=== PATIENT | female | born 1990 | race Caucasian/White ===

== ENCOUNTER 2021-06-04 10:05 | Inpatient (IN) | payer OTHER ==
[~2021-06-04] VITALS: Ht 170.2 cm; Wt 95.7 kg
--- NOTE | 2021-06-17 08:33 | NUR ---
06/17/21 0833 JONESBRAULIO 0821-PATIENT TO BACK TO ROOM 103. PATIENT AWAKE ON RA REQUESTING PILLOW BEHIND HEAD. DENIES PAIN AND NAUSEA. IN SR. GREG RICARDO ORDERD TO GIVE 1L OF LR WITH 20 PITOCIN. IV FLUIDS INFUSING. MOM FEEDING BABY.
--- NOTE | 2021-06-18 10:43 | PR ---
[facility] [address] [place], [place] [address] Signed PP Progress Notes Datetime Report Generated by CPN: 06/18/2021 10:43 SUBJECTIVE: [id number] Pain: Within Normal Limits Nausea/Vomiting: Denies Flatus: Yes Bowel Movement: No Vital Signs: [id number] Vital Signs: Reviewed; Within Normal Limits Notable Details: Hgb 10.8 EXAM: Ongoing Cardiovascular: Normal Respiratory: Normal Abdomen/Uterus: Normal Lochia: Normal Vulva/Perineum: Normal CVA Tenderness: Normal Extremities: Normal Incision: Normal Progress: Normal Exam Comments: Fundus firm U-2 nontender. Incision healing well w/ adam in place IMPRESSION/PLAN/PROCEDURES: [id number] Impression: Normal Progression Plan: Continue Present Management Progress Notes: Pt seen and examined. Doing well. Ambulating, voiding, and tolerating full diet. Pain and lochia minimal. w/out difficulty. No fevers chills or other concerns. Anticipate d/c home tomorrow. Signing Physician: Kati Graham DO Copies: ~ *Electronically Signed* 06/18/21 1043 KATI GRAHAM DO PATIENT NAME: BISSINGER,STACEY ADRIANA PROGRESS NOTE DATE OF : 89 PHYSICIAN: KATI GRAHAM DO RPT #: [id number] REPORT IS CONFIDENTIAL AND NOT TO BE RELEASED WITHOUT AUTHORIZATION
--- NOTE | 2021-06-19 09:17 | PR ---
[facility] [address] [place], [place] [address] Signed PP Progress Notes Datetime Report Generated by CPN: 06/19/2021 09:17 SUBJECTIVE: [id number] Pain: Within Normal Limits Nausea/Vomiting: Denies Flatus: Yes Bowel Movement: Yes Vital Signs: [id number] Vital Signs: Reviewed; Within Normal Limits Notable Details: Hgb 10.8 EXAM: Ongoing Cardiovascular: Normal Respiratory: Normal Abdomen/Uterus: Normal Lochia: Normal Vulva/Perineum: Not Done Breasts: Not Done CVA Tenderness: Normal Extremities: Normal Incision: Normal Progress: Normal Exam Comments: Fundus firm U-2 nontender, incision healing well IMPRESSION/PLAN/PROCEDURES: [id number] Impression: Normal Progression Plan: Remove Bryant; Discharge Progress Notes: Pt seen and examined. Doing well. Ambulating, voiding, and tolerating full diet. Pain and lochia minimal. well. No other concerns. Desires d/c home today. Unsure of pp contraception plans. Reviewed care in detail. All questions answered Signing Physician: Kati Graham DO Copies: ~ *Electronically Signed* 06/19/21916 KATI GRAHAM DO PATIENT NAME: STACEY JIMENEZ PROGRESS NOTE DATE OF : [birth year] PHYSICIAN: KATI GRAHAM DO RPT #: [id number] REPORT IS CONFIDENTIAL AND NOT TO BE RELEASED WITHOUT AUTHORIZATION
[2021-06-19] MEDS ORDERED: OMEPRAZOLE20 MG PO (20:18)
[2021-06-19] MEDS ORDERED: IBUPROFEN800 MG PO (20:18)
[2021-06-19] MEDS ORDERED: HYDROCODON-ACE1 EA10 PO (20:18)
[2021-06-19] MEDS ORDERED: STOOL SOFTENER100 MG PO (20:19)
--- NOTE | 2021-06-23 20:58 | OR ---
[facility] [address], [place] [address] Signed DATE OF OPERATION: 06/17/2021 SURGEON: Thelma Barrera MD PRODUCT MANAGER MEDICAL DEVICE: MILLER Graham, DO PREOPERATIVE DIAGNOSIS: Term , previous section. POSTOPERATIVE DIAGNOSIS: Term , previous section, delivered. PROCEDURE: Repeat section with lower segment transverse uterine incision. ANESTHESIA: Spinal. ESTIMATED BLOOD LOSS: 600 mL. DRAINS: Benites catheter. INDICATIONS AND FINDINGS: The patient is a 31-year-old female, 4, para 2, SAB 1, who was admitted at 39 weeks for repeat section. Her has been remarkable for being Rh negative and she did receive RhoGAM. She also had COVID in early April. She was delivered of a little boy via lower segment transverse uterine incision from ROT position with Apgars of 7 and 9 and weight of 8 pounds 6 ounces. There was a nuchal cord x1 which was tight. The lower segment was fairly thin. The bladder was advanced up onto the uterine wall. The tubes, ovaries, and placenta otherwise were normal. DESCRIPTION OF PROCEDURE: The patient was prepped and draped in the supine position. A repeat Pfannenstiel skin incision was made and carried down through the fascia. The incision was extended laterally. The inferior and superior fascial flaps were then created. The muscles were bluntly divided and the peritoneum opened sharply. The incision was extended bluntly. The Lei retractor was then placed. The uterine incision was made at the upper aspect Electronically Signed By: THELMA BARRERA MD 06/23/212057 PATIENT NAME: STACEY JIMENEZ OPERATIVE REPORT DATE OF : 89 REPORT #: [id number] PHYSICIAN: THELMA BARRERA MD PCP: NO PRIMARY CARE PHYSICIAN REPORT IS CONFIDENTIAL AND NOT TO BE RELEASED WITHOUT AUTHORIZATION [facility] [address], [place] [address] Signed of the peritoneal reflection. As noted above, the uterine segment was fairly thin. The baby was delivered with the above findings and handed off to the pediatric staff in attendance. The placenta was removed manually and the uterus explored showing no remaining fragments. The edges of the incision were identified and the uterus was closed in 2 layers. The first layer was a running locking stitch and the second was a horizontal imbricating stitch. Because the bladder was so close to the incision, the peritoneum was released at the right side of the incision creating more room for uterine closure. Bleeding points on the peritoneum were controlled with cautery. The abdomen was then irrigated and inspected and good hemostasis was noted. No evidence of bladder injury was found. The retractor was removed and the peritoneum identified. The ACell graft was laid over the lower segment to aid in healing. The peritoneum was then closed closed with a running suture of 3-0 Vicryl. The muscles were brought together with interrupted sutures of 0 Vicryl. Bleeding points on the fascia and muscles were controlled with cautery. This layer was also irrigated and good hemostasis was noted. ACell powder was sprinkled over the muscles to aid in healing. The fascia was then closed from each angle to the midline with a running suture of 0 Vicryl. The subcu space was irrigated and bleeding points controlled with cautery. The deep space was closed with interrupted sutures of 3-0 Vicryl. The skin was closed with adam. All sponge and needle counts were correct. She tolerated the procedure well and was taken to the recovery room in good condition. Thelma Barrera MD PJW/MODL /[id number] cc: MILLER Graham DO Copies: ~ Electronically Signed By: THELMA BARRERA MD 06/23/212057 PATIENT NAME: STACEY JIMENEZ OPERATIVE REPORT DATE OF : [birth year] REPORT #: [id number] PHYSICIAN: THELMA BARRERA MD PCP: NO PRIMARY CARE PHYSICIAN REPORT IS CONFIDENTIAL AND NOT TO BE RELEASED WITHOUT AUTHORIZATION
== END 2021-06-19 10:55 | disposition home or self-care (01) | DRG 788 ==
LOC: FBC 06-17 04:53
PROVIDERS: ADMIT Obstetrics & Gynecology; ATTEND Obstetrics & Gynecology
PROC: 10D00Z1 Extraction of Products of Conception, Low, Open Approach (ICD-10-PCS; principal; 2021-06-17 06:45)
DX: O34.211 Maternal care for low transverse scar from previous cesarean delivery (principal); Z3A.39 39 weeks gestation of pregnancy; Z37.0 Single live birth; Z86.16 Personal history of COVID-19; O69.81X0 Labor and delivery complicated by cord around neck, without compression, not applicable or unspecified
CPT/HCPCS: 01961; 83030; 85027; 86850; 86900; 86901; A9270; J1100; J1580; J1885; J2001; J2274; J2370; J2405; J2590; J2790; J3010; J7121

== ENCOUNTER 2021-06-19 20:00 | Emergency (ER) | payer OTHER ==
[~2021-06-19] VITALS: Ht 170.2 cm; Wt 90.7 kg
--- OUTSIDE RECORDS SUMMARY | 2021-06-19 20:02 | XMS ---
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 Eva has no Care Guidelines for this patient. Maxime VISIT COUNT (12 MO.) 1 JANENE Maloney TOTAL 1 NOTE: Visits indicate total known visits. ED/UCC VISIT TRACKING (12 MO.) 06/19/2021 20:00 JANENE Baird OR TYPE: Emergency COMPLAINT: - POST OP PROBLEM INPATIENT VISIT TRACKING (12 MO.) 06/17/2021 04:53 JANENE Baird OR TYPE: [facility] COMPLAINT: - REPEAT SECTION DIAGNOSES: - Maternal care for low transverse scar from previous delivery [email or web address]
[2021-06-19] MEDS ORDERED: OMEPRAZOLE20 MG PO (20:18)
[2021-06-19] MEDS ORDERED: IBUPROFEN800 MG PO (20:18)
[2021-06-19] MEDS ORDERED: HYDROCODON-ACE1 EA10 PO (20:18)
[2021-06-19] MEDS ORDERED: STOOL SOFTENER100 MG PO (20:19)
== END 2021-06-19 21:48 | disposition home or self-care (01) ==
LOC: ED 20:00
DX: O99.892 Other specified diseases and conditions complicating childbirth (principal); Z48.01 Encounter for change or removal of surgical wound dressing; Z91.040 Latex allergy status; Z88.0 Allergy status to penicillin; Z79.899 Other long term (current) drug therapy; Z79.891 Long term (current) use of opiate analgesic
CPT/HCPCS: 99282

== ENCOUNTER 2021-08-15 11:02 | Emergency (ER) | payer OTHER ==
[~2021-08-15] VITALS: Ht 170.2 cm; Wt 5.4 kg
[~2021-08-15 11:02] MED LIST: HYDROCODON-ACE1 EA10 PO; IBUPROFEN800 MG PO; OMEPRAZOLE20 MG PO; STOOL SOFTENER100 MG PO
[2021-08-15] MEDS ORDERED: METHYLPHENIDATE36 MG PO (13:38)
[2021-08-15] MEDS ORDERED: NORETHINDRONE0.35 MG PO (13:38)
== END 2021-08-15 14:12 | disposition home or self-care (01) ==
LOC: ED 11:02
DX: S60.222A Contusion of left hand, initial encounter (principal); W00.0XXA Fall on same level due to ice and snow, initial encounter; Z91.040 Latex allergy status; Z88.0 Allergy status to penicillin; Z79.899 Other long term (current) drug therapy
CPT/HCPCS: 73130; 99283-25

== ENCOUNTER 2023-04-21 18:09 | Emergency (ER) | payer OTHER ==
[~2023-04-21] VITALS: Ht 170.2 cm; Wt 86.5 kg
[~2023-04-21 18:09] MED LIST changes: +METHYLPHENIDATE36 MG PO; +NORETHINDRONE0.35 MG PO
--- OUTSIDE RECORDS SUMMARY | 2023-04-21 18:14 | XMS ---
PreManage Notification: STACEY JIMENEZ Security Carpet Technician Events No recent Security Events currently on file [facility] There are no care providers on record at this time. Eva has no Care Guidelines for this patient. Maxime VISIT COUNT (12 MO.) 1 JANENE Maloney TOTAL 1 NOTE: Visits indicate total known visits. ED/UCC VISIT TRACKING (12 MO.) 04/21/2023 18:11 JANENE Baird OR TYPE: Emergency COMPLAINT: - LOWER ABD PAIN INPATIENT VISIT TRACKING (12 MO.) No inpatient visits to display in this time frame [email or web address]
[2023-04-21 18:58] LABS: BASOPHILS 2.7 % (0-2); EOSINOPHILS 1.6 % (0-6); HEMATOCRIT 41.6 % (35.0-50.0); HEMOGLOBIN 14.1 g/dL (12.0-18.0); MCH 30.9 (27-36); MCHC 33.8 g/dl (30-36); MCV 91.4 fl (81-99); MONOCYTES 4.7 % (0-12); PLATELET COUNT 325 K/uL (140-440); RBC 4.55 M/ul (4.3-5.7); RDW 11.9 (10.5-15.0)
[2023-04-21 19:01] LABS: BILIRUBIN, URINE NEGATIVE (negative); BLOOD/HGB, URINE NEGATIVE (Negative); KETONE, URINE NEGATIVE (Negative); LEUK ESTERASE, URINE NEGATIVE (negative); NITRITE, URINE NEGATIVE (negative)
[2023-04-21 19:10] LABS: ALBUMIN 3.9 g/dL (3.4-5.0); ALBUMIN/GLOBULIN RATIO 1.03 (1.1-2.4); ANION GAP 12.3 (7-21); BILIRUBIN, TOTAL 0.4 ng/dL (0.2-1.0); BUN/CREATININE RATIO 20.48 (6.0-28.6); CREATININE, SERUM 0.83 mg/dL (0.55-1.02); POTASSIUM 3.3 mmol/L (3.5-5.1); PROTEIN, TOTAL 7.7 g/dL (6.4-8.2)
[2023-04-21] MEDS ORDERED: HYDROCODON-ACE1 EA10 PO (20:56)
[2023-04-21] MEDS ORDERED: CIPRO500 MG PO (20:56)
[2023-04-21] MEDS ORDERED: METRONIDAZOLE500 MG PO (20:56)
[2023-04-21] MEDS ORDERED: ONDANSETRON ODT8 MG PO (20:56)
[2023-04-21 21:21] VITALS: BP 111/75
== END 2023-04-21 21:14 | disposition home or self-care (01) ==
LOC: ED 18:09
PROVIDERS: Emergency Medicine
DX: K52.9 Noninfective gastroenteritis and colitis, unspecified (principal); Z88.0 Allergy status to penicillin; Z91.040 Latex allergy status; Z79.899 Other long term (current) drug therapy
CPT/HCPCS: 36415; 74177; 80053; 81003; 83690; 84703; 85025; 99284-25; A9270; J2405; Q9967